=== PATIENT | female | born 1995 | race Caucasian/White ===

== ENCOUNTER 2018-07-27 14:09 | Observation (INO) ==
[2018-07-27 14:33] VITALS: O2SAT 98
[2018-07-27] MEDS ORDERED: Acetaminophen 500 MG Tablet PO ONE (14:44)
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
[2018-07-27] MEDS ORDERED: Morphine Sulfate Inj 8 MG/ML Vial SQ ONE (20:45)
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
[2018-07-27] MEDS ORDERED: Acetaminophen 325 MG Tablet PO PRN (21:02)
[2018-07-27 22:07] LABS: Bacteria,Urine Rare /hpf; Bilirubin,Urine Negative (Negative); Calcium Oxalate Crystals,Urine Few /hpf; Clarity,Urine Hazy (Clear); Color,Urine Yellow (Yellw/Straw); Glucose,Urine (UA) Negative (Negative); Leukocyte Esterase,Urine Negative (Negative); Mucus,Urine Few /lpf (Occasional); Nitrite,Urine Negative (Negative); Specific Gravity,Urine 1.019 (1.002-1.035); Squamous Epithelial Cell,Urine <1 /hpf (0-5)
[2018-07-27 22:11] LABS: Amphetamine Urine With Conf Neg (Neg); Benzodiazepine Urine With Conf Neg (Neg); Cocaine Urine With Conf Neg (Neg); Opiates Urine With Conf Neg (Neg)
[2018-07-27 22:32] LABS: Cannabinoid Urine With Conf Neg (Neg)
[2018-07-27 23:09] LABS: Baso % (Auto) 0.4 % (0.0-2.0); Eos # (Auto) 0.1 th/mm3 (0.0-0.4); Eos % (Auto) 0.9 % (0.0-4.0); Hematocrit 32.6 % (35.0-46.0); Hemoglobin 11.2 gm/dL (11.6-15.3); Lymph # (Auto) 2.1 th/mm3 (1.0-4.8); Lymph % (Auto) 16.5 % (9.0-44.0); Mean Corpuscular HGB Conc 34.4 % (32.0-36.0); Mean Corpuscular Hemoglobin 32.7 pg (27.0-34.0); Mean Corpuscular Volume 95.1 fL (80.0-100.0); Mean Platelet Volume 7.6 fL (7.0-11.0); Mono # (Auto) 0.8 th/mm3 (0.0-0.9); Mono % (Auto) 6.2 % (0.0-8.0); Neut # (Auto) 9.4 th/mm3 (1.8-7.7); Platelet Count 232 th/mm3 (150-450); Red Blood Count 3.42 mil/mm3 (4.00-5.30); White Blood Count 12.4 th/mm3 (4.0-11.0)
[2018-07-27] MEDS: Zolpidem Tartrate 5 MG Tablet PO PRN (23:31)
[2018-07-27 23:37] LABS: Alanine Aminotransferase 10 U/L (10-53); Albumin 2.4 g/dL (3.4-5.0); Anion Gap 6 meq/L (5-15); Aspartate Aminotransferase 8 U/L (15-37); Blood Urea Nitrogen 8 mg/dL (7-18); Calcium 8.7 mg/dL (8.5-10.1); Carbon Dioxide 27.2 meq/L (21.0-32.0); Chloride 109 meq/L (98-107); Glomerular Filtration Rate Greater Than 89 mL/min (>89); Glucose,Random 93 mg/dL (74-106); Potassium 3.9 meq/L (3.5-5.1); Sodium 142 meq/L (136-145)
[2018-07-27 23:40] LABS: Alkaline Phosphatase 106 U/L (45-117); Total Protein 6.6 g/dL (6.4-8.2)
[2018-07-28] MEDS: Morphine Sulfate Inj 8 MG/ML Vial SQ PRN (02:16)
[2018-07-28 04:52] LABS: Baso % (Auto) 0.3 % (0.0-2.0); Eos # (Auto) 0.2 th/mm3 (0.0-0.4); Eos % (Auto) 1.3 % (0.0-4.0); Hematocrit 30.1 % (35.0-46.0); Hemoglobin 10.6 gm/dL (11.6-15.3); Lymph # (Auto) 2.7 th/mm3 (1.0-4.8); Lymph % (Auto) 22.9 % (9.0-44.0); Mean Corpuscular HGB Conc 35.2 % (32.0-36.0); Mean Corpuscular Volume 93.8 fL (80.0-100.0); Mean Platelet Volume 7.4 fL (7.0-11.0); Mono # (Auto) 0.8 th/mm3 (0.0-0.9); Neut # (Auto) 8.1 th/mm3 (1.8-7.7); Neut % (Auto) 68.5 % (16.0-70.0); Platelet Count 215 th/mm3 (150-450); Red Blood Count 3.21 mil/mm3 (4.00-5.30); Red Cell Distribution Width 13.4 % (11.6-17.2); White Blood Count 11.8 th/mm3 (4.0-11.0)
[2018-07-28] MEDS ORDERED: Naloxone Inj 0.4 MG/ML Vial IV.PUSH PRN (08:33)
[2018-07-28] MEDS ORDERED: oxyCODONE/Acetaminophen 10/325 Tablet PO PRN (08:33)
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
[2018-07-28 10:03] LABS: Baso % (Auto) 0.2 % (0.0-2.0); Eos # (Auto) 0.1 th/mm3 (0.0-0.4); Eos % (Auto) 1.1 % (0.0-4.0); Hematocrit 34.3 % (35.0-46.0); Hemoglobin 11.7 gm/dL (11.6-15.3); Lymph # (Auto) 1.7 th/mm3 (1.0-4.8); Mean Corpuscular HGB Conc 34.2 % (32.0-36.0); Mean Corpuscular Hemoglobin 33.4 pg (27.0-34.0); Mean Corpuscular Volume 97.7 fL (80.0-100.0); Mean Platelet Volume 7.5 fL (7.0-11.0); Mono # (Auto) 0.6 th/mm3 (0.0-0.9); Mono % (Auto) 5.5 % (0.0-8.0); Neut # (Auto) 8.3 th/mm3 (1.8-7.7); Neut % (Auto) 77.2 % (16.0-70.0); Platelet Count 222 th/mm3 (150-450); Red Blood Count 3.51 mil/mm3 (4.00-5.30); Red Cell Distribution Width 13.5 % (11.6-17.2); White Blood Count 10.8 th/mm3 (4.0-11.0)
[2018-07-28] MEDS ORDERED: Butalbital/APAP/Caff 50/325/40 MG Tablet PO PRN ×2 (12:57→13:00)
[2018-07-28] MEDS: Butalbital/APAP/Caff 50/325/40 MG Tablet PO PRN ×2 (14:00→19:35)
[2018-07-28 14:08] LABS: Hematocrit 31.8 % (35.0-46.0); Hemoglobin 11.1 gm/dL (11.6-15.3)
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
[2018-07-29] MEDS: Butalbital/APAP/Caff 50/325/40 MG Tablet PO PRN ×2 (08:11→14:25)
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
[2018-07-29] MEDS ORDERED: Naloxone Inj 0.4 MG/ML Vial IV.PUSH PRN (10:14)
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
[2018-07-29] MEDS: Betamethasone Sod Phos/Acetate Inj 30 MG/5 ML Vial IM SCH (14:25)
[2018-07-29] MEDS ORDERED: Mag Sulf/Water 4 gm/100 ml 100 ML IV.SIG ONE (15:33)
--- NOTE | 2018-07-29 15:35 | P.OBGPN ---
notified patient now complaining of excruciating pain reports 10 out of 10. Patient was reporting pain in the right lower quadrant-stat ultrasound done at the bedside patient's plan was sent to is anterior and also is noted to be positioned the same location the patient is complaining of excruciating pain. Patient has received steroids now will initiate magnesium sulfate for neuro protection. There is concern for possible abruption of placenta-discussed with the patient and the family the plan will be to transfer to level 3 nursery in case she necessitates delivery. Contacted MFM at [facility]-recommends rule out any other etiology for abdominal pain. Plan to send patient for CT of the abdomen and pelvis to ensure no other organ damage or injury-if negative will reach out again for possible transfer. Patient was also made aware of risks to the fetus with [address]
[2018-07-29] MEDS: Mag Sulf/Water 40 gm/1000 ml 40 GM/1,000 ML BAG IV.CONT SCH (16:08)
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
[2018-07-29] MEDS: Zolpidem Tartrate 5 MG Tablet PO PRN (20:44)
--- NOTE | 2018-07-29 22:11 | P.OBGPN ---
Patient seen complains of abdominal pain-CT of the abdomen performed mild bilateral hydronephrosis otherwise negative. MRI of the head performed unremarkable. status is reassuring. At this time delay of transfer secondary to peds unavailable at level 3 nursery. Patient was advised if necessitates delivery due to status would proceed to deliver but at this time fetus appears to be stable and obviously transfer as needed.
[2018-07-29] MEDS ORDERED: Lidocaine 2% Jelly 5 ML Syringe OTHER ONE (22:15)
[2018-07-30] MEDS: Zolpidem Tartrate 5 MG Tablet PO PRN (00:34)
--- NOTE | 2018-07-30 07:25 | P.PNNEU ---
Subjective Active Medications: Active Medications Acetaminophen (Tylenol) 650 mg PO Q4H PRN PRN Reason: PAIN SCALE 1 TO 5 Acetaminophen/Butalbital/Caffeine (Fioricet 50-325-40) 2 tab PO Q6H PRN PRN Reason: HEADACHE Last Admin: 07/29/18 14:25 Dose: 2 tab Betamethasone Acet/Betameth SodPhos (Celestone Soluspan Inj) 12 mg IM Q24H [facility] Stop: 07/30/18 13:01 Last Admin: 07/29/18 14:25 Dose: 12 mg Calcium Gluconate (Calcium Gluconate Inj) 1 gm IV.PUSH ONCE PRN PRN Reason: Magnesium Toxicity Magnesium Sulfate (Magnesium Sulfate/Water 40 Gm/1000 Ml Premix) 40 gm in 1, 000 mls @ 50 mls/hr IV.CONT Q24H [facility] Last Admin: 07/29/18 16:08 Dose: 2 gm/hr, 50 mls/hr Lactated Ringer's (Lr 1000 Ml Inj) 1,000 mls @ 75 mls/hr IV.CONT .[id number] [facility] Last Admin: 07/30/18 06:00 Dose: 75 mls/hr Morphine Sulfate (Morphine Inj) 8 mg SQ Q4H PRN PRN Reason: HEADACHE Last Admin: 07/28/18 02:16 Dose: 8 mg Naloxone HCl (Narcan Inj) 0.4 mg IV.PUSH UNSCH PRN PRN Reason: SEE LABEL COMMENTS Naloxone HCl (Narcan Inj) 0.4 mg IV.PUSH UNSCH PRN PRN Reason: SEE LABEL COMMENTS Ondansetron HCl (Zofran Odt) 4 mg PO Q6H PRN PRN Reason: NAUSEA OR VOMITING Oxycodone HCl (Roxicodone) 5 mg PO Q4H PRN PRN Reason: PAIN SCALE 3 TO 5 Last Admin: 07/29/18 10:42 Dose: 5 mg Oxycodone HCl (Roxicodone) 10 mg PO Q4H PRN PRN Reason: PAIN SCALE 6 TO 10 Last Admin: 07/29/18 22:14 Dose: 10 mg Sodium Chloride (Ns Flush) 2 ml IV.FLUSH BID [facility] Last Admin: 07/29/18 22:15 Dose: Not Given Sodium Chloride (Ns Flush) 2 ml IV.FLUSH PRN PRN PRN Reason: FLUSH AFTER USING IV ACCESS Last Admin: 07/27/18 21:30 Dose: 2 ml Zolpidem Tartrate (Ambien) 5 mg PO HS PRN PRN Reason: SLEEP Last Admin: 07/30/18 00:34 Dose: 5 mg Allergies/Adverse Reactions: Allergies Allergy/AdvReac Type Severity Reaction Status Date / Time diphenhydramine Allergy Severe Swelling Verified 07/27/18 23:34 [From Benadryl Allergy] of Lip/Tongue/Throat latex Allergy Severe Hives Verified 07/27/18 23:34 adhesive tape Allergy Intermediate Rash Verified 07/27/18 23:35 Physical Exam Vital signs: Vital Signs 07/29/18 07:26 07/29/18 08:17 07/29/18 11:13 Temperature 98.0 F Pulse Rate 83 Respiratory Rate 16 16 18 Blood Pressure 123/75 07/29/18 14:09 07/29/18 14:31 07/29/18 15:46 Temperature Pulse Rate 100 H Respiratory Rate 18 18 Blood Pressure 125/72 07/29/18 15:50 07/29/18 15:55 07/29/18 16:00 Temperature Pulse Rate 99 H 101 H 102 H Respiratory Rate Blood Pressure 128/65 134/60 128/68 07/29/18 16:10 07/29/18 16:15 07/29/18 16:50 Temperature Pulse Rate 96 H 96 H 100 H Respiratory Rate Blood Pressure 110/43 L 07/29/18 16:55 07/29/18 19:33 07/29/18 19:49 Temperature 98.4 F Pulse Rate 94 H 104 H Respiratory Rate 18 Blood Pressure 74/56 L 121/68 07/29/18 19:55 07/29/18 20:50 07/29/18 20:55 Temperature 98.8 F Pulse Rate 96 H 94 H 103 H Respiratory Rate 18 Blood Pressure 129/66 07/29/18 21:40 07/29/18 21:45 07/29/18 22:00 Temperature 98.4 F Pulse Rate 110 H 100 H 97 H Respiratory Rate 18 Blood Pressure 106/53 L 07/29/18 22:45 07/29/18 22:55 07/29/18 23:00 Temperature 98.5 F Pulse Rate 95 H 102 H Respiratory Rate 18 Blood Pressure 114/64 07/29/18 23:59 07/30/18 00:00 12/06/18 00:55 Temperature 98.4 F Pulse Rate 97 H 95 H Respiratory Rate 18 Blood Pressure 131/69 07/30/18 01:00 07/30/18 01:30 07/30/18 01:40 Temperature 98.4 F Pulse Rate 100 H 92 H Respiratory Rate 18 18 Blood Pressure 146/67 H 07/30/18 01:55 07/30/18 02:55 07/30/18 03:00 Temperature 98.3 F Pulse Rate 94 H 85 Respiratory Rate 18 Blood Pressure 107/54 L 07/30/18 03:35 07/30/18 03:47 07/30/18 03:50 Temperature Pulse Rate 77 72 Respiratory Rate 18 Blood Pressure 106/69 07/30/18 03:55 07/30/18 04:10 07/30/18 04:59 Temperature 98.2 F Pulse Rate 66 78 Respiratory Rate 18 Blood Pressure 107/59 L 07/30/18 05:30 07/30/18 06:00 07/30/18 06:55 Temperature Pulse Rate 76 79 Respiratory Rate 18 Blood Pressure 108/64 07/30/18 07:15 Temperature Pulse Rate 83 Respiratory Rate Blood Pressure Intake & Output 07/29/18 07/30/18 07/30/18 18:59 06:59 18:59 Intake Total 1000 / 1000 Balance 1000 / 1000 Intake: IV 1000 / 1000 LR 1000 mL Inj 1,000 ML @ 75 1000 / 1000 mls/hr IV.CONT .[id number] [facility] Rx# :[id number] Narrative: awake alert nad stil escobar speech nl co abd pain Objective Laboratory Results - last 24 hr 07/29/18 07/29/18 07/29/18 11:59 21:32 21:32 ESR 75 H TSH 0.771 Blood Type O Positive Blood Type Recheck Required Antibody Screen Negative Review/Management - Review/Management Plan: imp still escobar consider inderal although bp pretty low defer to ob on pain meds esr 75 is that nl in ?
--- NOTE | 2018-07-30 08:17 | P.OBGPN ---
Attending note hospital day #4 Patient has been seen by me several times throughout her stay. She had complained of right mid quadrant pain which is always present. CT of the abdomen is unremarkable. Neurology has seen the patient MR of the head is unremarkable because she also complains of headache. Patient seen at this time she is resting comfortably asleep palpation of her abdomen is unremarkable but when patient awake and she reports to the nurse she still has pain. Plan of care today to rule out if there are any true concerns since she has had a rate reassuring heart rate tracing throughout her stay category 1 and to differentiate that from musculoskeletal's to have a MRI and we will repeat her CBC since she had a positive Kleihauer-Betke.
[2018-07-30] MEDS: Butalbital/APAP/Caff 50/325/40 MG Tablet PO PRN (08:30)
[2018-07-30 09:45] LABS: Baso % (Auto) 0.1 % (0.0-2.0); Hematocrit 34.2 % (35.0-46.0); Hemoglobin 11.8 gm/dL (11.6-15.3); Lymph # (Auto) 1.3 th/mm3 (1.0-4.8); Lymph % (Auto) 8.2 % (9.0-44.0); Mean Corpuscular HGB Conc 34.5 % (32.0-36.0); Mean Corpuscular Hemoglobin 32.7 pg (27.0-34.0); Mean Corpuscular Volume 94.8 fL (80.0-100.0); Mean Platelet Volume 7.5 fL (7.0-11.0); Mono # (Auto) 0.7 th/mm3 (0.0-0.9); Mono % (Auto) 4.5 % (0.0-8.0); Neut # (Auto) 13.8 th/mm3 (1.8-7.7); Neut % (Auto) 87.2 % (16.0-70.0); Platelet Count 242 th/mm3 (150-450); Red Cell Distribution Width 12.8 % (11.6-17.2); White Blood Count 15.8 th/mm3 (4.0-11.0)
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
[2018-07-30] MEDS: Betamethasone Sod Phos/Acetate Inj 30 MG/5 ML Vial IM SCH (14:45)
[2018-07-30] MEDS: Mag Sulf/Water 40 gm/1000 ml 40 GM/1,000 ML BAG IV.CONT SCH ×2 (14:51→19:07)
[2018-07-30] MEDS: Morphine Sulfate Inj 8 MG/ML Vial SQ PRN (21:56)
[2018-07-31] MEDS: Zolpidem Tartrate 5 MG Tablet PO PRN (00:14)
[2018-07-31 01:23] LABS: Bacteria,Urine Occasional /hpf; Bilirubin,Urine Negative (Negative); Clarity,Urine Hazy (Clear); Color,Urine Yellow (Yellw/Straw); Glucose,Urine (UA) 50 mg/dL (Negative); Leukocyte Esterase,Urine Trace (Negative); Mucus,Urine Few /lpf (Occasional); Nitrite,Urine Negative (Negative); Specific Gravity,Urine 1.011 (1.002-1.035); Squamous Epithelial Cell,Urine <1 /hpf (0-5)
[2018-07-31] MEDS: Morphine Sulfate Inj 8 MG/ML Vial SQ PRN ×2 (01:56→06:01)
[2018-07-31 06:09] VITALS: RESP 16
[2018-07-31 07:17] VITALS: PULSE 82; TEMP 98.3
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
[2018-07-31] MEDS: Butalbital/APAP/Caff 50/325/40 MG Tablet PO PRN (09:36)
[2018-07-31 10:41] VITALS: BP 117/77
== END 2018-07-31 11:12 | disposition home or self-care (01) ==
LOC: H2E 14:09 → NEPD 14:09 → H2E 22:00
PROVIDERS: ADMIT Obstetrics & Gynecology Maternal & Fetal Medicine; ATTEND Obstetrics & Gynecology Maternal & Fetal Medicine